=== PATIENT | female | born 1935 | race Caucasian/White ===

== ENCOUNTER 2016-07-20 17:37 | Emergency (ER) | payer MEDICARE, BC ==
[~2016-07-20 17:37] MED LIST: ACCUNE1 INH; ACCUNEB INH; ALBUTEROL 0.083% INH; ALLEGRA180 PO; ASAB PO; ASMANEX 30110 MCG IN; ASMANEX INH; AUG875 PO; BIAXIN PO; CALCIUM PO; CARD60 PO; DOXYCYCLINE PO; DULERA 100 MCG/13 GM INH; DULERA 200 MCG/13 GM INH; ECOTRIN PO; ELESTAT0.05 % OPH; FISH-EPA1000 MG PO; FLONASE NAS; FLOVENT DISK50 MCG INH; FLUCON1 PO; FORADIL INH; GLUCOPHAGE1000 MG PO; HALF81 PO; LEVOTHYROXIN88 MCG PO; LEVSINTAB PO; LEVSINTAB PO/SL; LIDOCAINE HCL 4% INH; LIPITOR40 PO; MAGNESIUM 250MG OTC PO; MIRALAXPKT PO; MOBIC15 MG PO; MUCINEX PO; MUCINEX600 MG PO; NEILMED SINUS RINSE; NEILMED SINUS RINSE NAS; NEXIUM40 PO; OS500+D PO; P20 PO; PONARIS; PONARIS NAS; PROBIOTIC; PROBIOTIC PO; PROTOPIC0.03 % EX; PROVENTIL; PROVENTSOL INH; PROVHFA INH; RECLAST IV; SINGULAIR1 PO; SODIUM CHLORIDE 7% INH; SYN.05 PO; SYN1 PO; SYN112 PO; SYN88 PO; TESS PO; TESSALON200 MG PO; VERAMYST27.5 MCG NAS; VITAMIN C100 MG PO; VITAMIN D1000 UNI1 PO; VITC500 PO; XOPENEX1.25 MG/3 INH
[2016-07-20 18:12] LABS: BASOPHILS 0.1 %; BASOPHILS ABSOLUTE 0.01 10/3/uL (0.0-0.16); EOSINOPHILS 0.9 %; EOSINOPHILS ABSOLUTE 0.08 10/3/uL (0.0-0.53); HEMOGLOBIN 14.3 g/dL (12.0-16.0); IMMATURE GRANULOCYTES ABSOLUTE 0.09 10/3/uL (0.0-0.11); LYMPHOCYTES 8.7 %; LYMPHOCYTES ABSOLUTE 0.79 10/3/uL (0.67-4.30); MEAN CORPUS HGB CONC 35.3 g/dL (32.0-36.0); MEAN CORPUSCULAR HEMOGLOB 32.9 pg (26.0-34.0); MEAN CORPUSCULAR VOLUME 93.3 fL (80-100); MONOCYTES 4.5 %; MONOCYTES ABSOLUTE 0.41 10/3/uL (0.21-1.20); NEUTROPHILS 84.8 %; NEUTROPHILS ABSOLUTE 7.69 10/3/uL (2.02-8.40); RBC DISTRIBUTION WIDTH 13.6 % (12.0-16.0); RED CELL COUNT 4.34 10/6/uL (4.0-5.6)
[2016-07-20 18:14] LABS: ER CBC TAT 0 Hrs 08 Mins; HEMATOCRIT 40.5 % (36.0-48.0); MANUAL DIFF NO %; PLATELET COUNT 360 10/3/uL (150-400); WHITE BLOOD CELLS 9.1 10/3/uL (4.5-10.5)
[2016-07-20 18:17] LABS: INTERNATIONAL NORMAL RATI 1.1 UNITS (-); PROTIME (NOT ORD) 14.2 SEC (12.0-14.5)
[2016-07-20 18:27] LABS: CALCIUM, SERUM 9.5 MG/DL (8.5-10.4); CHEST PAIN PROFILE TAT 0 Hrs 21 Mins; CHLORIDE, SERUM 103 MMOL/L (96-112); CO2 (CARBON DIOXIDE) 21 MMOL/L (24-34); CREATININE 0.88 MG/DL (0.55-1.02); GFR AFRICAN AMERICAN 72 ML/MIN (>=60); GFR NON AFRICAN AMERICAN 62 ML/MIN (>=60); POTASSIUM, SERUM 4.4 MMOL/L (3.5-5.3); SODIUM, SERUM 138 MMOL/L (135-148); TROPONIN I <0.02 NG/ML (<0.05)
[2016-07-20 18:28] LABS: BUN (BLOOD UREA NITROGEN) 20 MG/DL (6-23); GLUCOSE, SERUM 199 MG/DL (60-99)
== END 2016-07-20 20:04 | disposition home or self-care (01) ==
LOC: ER 17:37
PROVIDERS: Emergency Medicine
DX: I48.92 Unspecified atrial flutter (principal); J45.909 Unspecified asthma, uncomplicated; I10 Essential (primary) hypertension; I48.91 Unspecified atrial fibrillation; Z88.1 Allergy status to other antibiotic agents; Z88.8 Allergy status to other drugs, medicaments and biological substances; Z79.899 Other long term (current) drug therapy
CPT/HCPCS: 71010; 80048; 83735; 84484; 85025; 85610; 85730; 93005; 96374; 99285; A9270-GY

== ENCOUNTER 2016-07-28 18:46 | Emergency (ER) | payer MEDICARE, BC ==
[2016-07-28 19:25] LABS: BASOPHILS 0.6 %; BASOPHILS ABSOLUTE 0.04 10/3/uL (0.0-0.16); EOSINOPHILS 2.5 %; EOSINOPHILS ABSOLUTE 0.17 10/3/uL (0.0-0.53); ER CBC TAT 0 Hrs 08 Mins; HEMATOCRIT 39.6 % (36.0-48.0); HEMOGLOBIN 13.7 g/dL (12.0-16.0); IMMATURE GRANULOCYTES 0.6 %; IMMATURE GRANULOCYTES ABSOLUTE 0.04 10/3/uL (0.0-0.11); LYMPHOCYTES 15.9 %; LYMPHOCYTES ABSOLUTE 1.08 10/3/uL (0.67-4.30); MEAN CORPUS HGB CONC 34.6 g/dL (32.0-36.0); MEAN CORPUSCULAR HEMOGLOB 32.7 pg (26.0-34.0); MEAN CORPUSCULAR VOLUME 94.5 fL (80-100); MEAN PLATELET VOLUME 9.1 fL (9.2-13.0); MONOCYTES 7.1 %; MONOCYTES ABSOLUTE 0.48 10/3/uL (0.21-1.20); NEUTROPHILS 73.3 %; NEUTROPHILS ABSOLUTE 4.97 10/3/uL (2.02-8.40); PLATELET COUNT 262 10/3/uL (150-400); RBC DISTRIBUTION WIDTH 14.1 % (12.0-16.0); RED CELL COUNT 4.19 10/6/uL (4.0-5.6); WHITE BLOOD CELLS 6.8 10/3/uL (4.5-10.5)
[2016-07-28 19:28] LABS: MANUAL DIFF NO %
[2016-07-28 19:33] LABS: INTERNATIONAL NORMAL RATI 1.4 UNITS (-)
[2016-07-28 19:34] LABS: PARTIAL THROMBO TIME 28.7 SEC (22.5-37.2)
[2016-07-28 19:38] LABS: CALCIUM, SERUM 9.6 MG/DL (8.5-10.4); CHEST PAIN PROFILE TAT 0 Hrs 21 Mins; CHLORIDE, SERUM 108 MMOL/L (96-112); CO2 (CARBON DIOXIDE) 24 MMOL/L (24-34); CREATININE 0.79 MG/DL (0.55-1.02); GFR AFRICAN AMERICAN 83 ML/MIN (>=60); GFR NON AFRICAN AMERICAN 71 ML/MIN (>=60); GLUCOSE, SERUM 188 MG/DL (60-99); POTASSIUM, SERUM 3.9 MMOL/L (3.5-5.3); SODIUM, SERUM 143 MMOL/L (135-148); TROPONIN I <0.02 NG/ML (<0.05)
[2016-07-28 19:39] LABS: BUN (BLOOD UREA NITROGEN) 16 MG/DL (6-23)
[2016-07-28 19:44] LABS: PROTIME (NOT ORD) 16.6 SEC (12.0-14.5)
[2016-07-28] MEDS ORDERED: LIPITOR40 PO (20:49)
[2016-07-28] MEDS ORDERED: FORTAMET1000 MG PO (20:49)
[2016-07-28] MEDS ORDERED: SYN88 PO (20:50)
[2016-07-28] MEDS ORDERED: MAG OXIDE250 MG PO (20:50)
[2016-07-28] MEDS ORDERED: SODIUM CHLORIDE 7% INH (20:51)
[2016-07-28] MEDS ORDERED: ALBUTEROL0.083 % INH (20:51)
[2016-07-28] MEDS ORDERED: MUCINEX600 MG PO (20:52)
[2016-07-28] MEDS ORDERED: PRILOSEC40 MG PO (20:52)
[2016-07-28] MEDS ORDERED: ELIQUIS 5 MG TAB5 MG PO (20:53)
[2016-07-28] MEDS ORDERED: CARDCD120 PO (20:53)
[2016-07-28] MEDS ORDERED: BETAPACE80 PO (20:54)
[2016-07-28] MEDS ORDERED: LEVSINTAB PO/SL (20:55)
[2016-07-28] MEDS ORDERED: SINUS RINSE NAS (20:55)
[2016-07-28] MEDS ORDERED: MIRALAX POWDER1 PKT PO (20:56)
[2016-07-28] MEDS ORDERED: ALLEGRA180 PO (20:56)
[2016-07-28] MEDS ORDERED: FLONASE NAS (20:57)
[2016-07-28] MEDS ORDERED: SYMBICORT 160/41 INH INH (20:57)
[2016-07-28] MEDS ORDERED: SINGULAIR1 PO (20:58)
[2016-07-28] MEDS ORDERED: PROVHFA INH (20:58)
[2016-07-28] MEDS ORDERED: P20 (21:00)
[2016-07-28] MEDS ORDERED: VITC500 PO (21:02)
[2016-07-28] MEDS ORDERED: VITAMIN D1000 UNI1 PO (21:02)
[2016-07-28] MEDS ORDERED: ASAB PO (21:03)
[2016-07-28] MEDS ORDERED: OYST-CAL500 MG PO (21:03)
== END 2016-07-28 21:26 | disposition home or self-care (01) ==
LOC: ER 18:46
PROVIDERS: Emergency Medicine
DX: I48.91 Unspecified atrial fibrillation (principal); J45.909 Unspecified asthma, uncomplicated; K21.9 Gastro-esophageal reflux disease without esophagitis; E11.9 Type 2 diabetes mellitus without complications; Z87.442 Personal history of urinary calculi; E11.43 Type 2 diabetes mellitus with diabetic autonomic (poly)neuropathy; K31.84 Gastroparesis; Z88.1 Allergy status to other antibiotic agents; Z91.048 Other nonmedicinal substance allergy status; Z88.8 Allergy status to other drugs, medicaments and biological substances; Z79.84 Long term (current) use of oral hypoglycemic drugs; Z79.82 Long term (current) use of aspirin; Z79.899 Other long term (current) drug therapy; Z79.52 Long term (current) use of systemic steroids
CPT/HCPCS: 71010; 80048; 83735; 84484; 85025; 85610; 85730; 93005; 96374; 99285

== ENCOUNTER 2016-08-01 20:42 | Emergency (ER) | payer MEDICARE, BC ==
[2016-08-01 17:55] LABS: BASOPHILS 0.3 %; BASOPHILS ABSOLUTE 0.02 10/3/uL (0.0-0.16); EOSINOPHILS 1.9 %; EOSINOPHILS ABSOLUTE 0.12 10/3/uL (0.0-0.53); ER CBC TAT 0 Hrs 05 Mins; HEMATOCRIT 37.4 % (36.0-48.0); IMMATURE GRANULOCYTES 0.3 %; IMMATURE GRANULOCYTES ABSOLUTE 0.02 10/3/uL (0.0-0.11); LYMPHOCYTES 14.6 %; LYMPHOCYTES ABSOLUTE 0.93 10/3/uL (0.67-4.30); MEAN CORPUS HGB CONC 34.8 g/dL (32.0-36.0); MEAN CORPUSCULAR HEMOGLOB 32.7 pg (26.0-34.0); MEAN PLATELET VOLUME 8.9 fL (9.2-13.0); MONOCYTES 11.3 %; MONOCYTES ABSOLUTE 0.72 10/3/uL (0.21-1.20); NEUTROPHILS 71.6 %; NEUTROPHILS ABSOLUTE 4.57 10/3/uL (2.02-8.40); PLATELET COUNT 224 10/3/uL (150-400); RBC DISTRIBUTION WIDTH 14.1 % (12.0-16.0); RED CELL COUNT 3.98 10/6/uL (4.0-5.6); WHITE BLOOD CELLS 6.4 10/3/uL (4.5-10.5)
[2016-08-01 18:04] LABS: PARTIAL THROMBO TIME 27.2 SEC (22.5-37.2)
[2016-08-01 18:08] LABS: PROTIME (NOT ORD) 13.5 SEC (12.0-14.5)
[2016-08-01 18:09] LABS: MANUAL DIFF NO %
[2016-08-01 18:13] LABS: BUN (BLOOD UREA NITROGEN) 15 MG/DL (6-23); CALCIUM, SERUM 9.8 MG/DL (8.5-10.4); CHEST PAIN PROFILE TAT 0 Hrs 23 Mins; CHLORIDE, SERUM 109 MMOL/L (96-112); CO2 (CARBON DIOXIDE) 23 MMOL/L (24-34); CREATININE 0.84 MG/DL (0.55-1.02); GFR AFRICAN AMERICAN 77 ML/MIN (>=60); GFR NON AFRICAN AMERICAN 66 ML/MIN (>=60); GLUCOSE, SERUM 153 MG/DL (60-99); POTASSIUM, SERUM 3.7 MMOL/L (3.5-5.3); SODIUM, SERUM 143 MMOL/L (135-148); TROPONIN I <0.02 NG/ML (<0.05)
[~2016-08-01 20:42] MED LIST changes: +ALBUTEROL0.083 % INH; +BETAPACE80 PO; +CARDCD120 PO; +ELIQUIS 5 MG TAB5 MG PO; +FORTAMET1000 MG PO; +MAG OXIDE250 MG PO; +MIRALAX POWDER1 PKT PO; +OYST-CAL500 MG PO; +P20; +PRILOSEC40 MG PO; +SINUS RINSE NAS; +SYMBICORT 160/41 INH INH
== END 2016-08-01 22:50 | disposition home or self-care (01) ==
LOC: ER 20:42
PROVIDERS: Hospitalist
DX: I48.91 Unspecified atrial fibrillation (principal); J45.909 Unspecified asthma, uncomplicated; E11.9 Type 2 diabetes mellitus without complications; Z88.1 Allergy status to other antibiotic agents; Z88.8 Allergy status to other drugs, medicaments and biological substances; Z79.899 Other long term (current) drug therapy
CPT/HCPCS: 71020; 80048; 83735; 84484; 85025; 85610; 85730; 93005; 96374; 99285; A9270-GY